=== PATIENT | male | born 1995 | race Caucasian/White ===

== ENCOUNTER 2017-12-11 12:07 | Emergency (ER) | payer MEDICAID ==
[~2017-12-11] VITALS: Ht 175.3 cm; Wt 74.0 kg
[2017-12-11 13:13] VITALS: BP 118/75
== END 2017-12-11 18:40 | disposition left against medical advice (07) ==
LOC: ER 13:33
DX: M54.5 Low back pain (principal); Z53.21 Procedure and treatment not carried out due to patient leaving prior to being seen by health care provider